=== PATIENT | female | born 1995 | race Caucasian/White ===

== ENCOUNTER 2021-04-18 11:50 | Emergency (ER) | payer OTHER, MEDICAID, SELFPAY ==
[2021-04-18 11:56] VITALS: BP 172/111; PULSE 121; RESP 24; TEMP 36.8; O2SAT 96
--- NOTE | 2021-04-18 12:03 | ED_ITS ---
HPI - Skin/Abscess/Foreign Bdy <TRINY Hogan - Last Filed: 04/18/21 18:41> General Chief complaint: Skin/Abscess/Foreign Body Stated complaint: Boils on skin-painful Time Seen by Provider: 04/18/21 11:56 Source: patient Mode of arrival: Ambulatory Limitations: no limitations History of Present Illness HPI narrative: 26-year-old female with history of methamphetamine use prior to 1 month ago, currently smoking fentanyl, presents today for multiple, painful skin eruptions on her whole body. She states that she used to use heroin, and she got sober for 2 years in a 12 step program and relapsed 2 years ago to methamphetamine. She states that her pain has been so bad with these skin eruptions that she started smoking fentanyl to help with her pain. She denies having a primary care provider at this time, she states that she needs help with pain management, and she is here today for help with her multiple skin eruptions. She states that she has been using warm compresses which helps bring them to the surface, and she states that she sometimes pops them when she can see pus, she states other times she does pick at them but tries not to. She denies having any recent fever, she does endorse having history of MRSA, as well as being admitted to the hospital with sepsis for this in the past. She denies any nausea vomiting, chest pain, difficulty breathing, joint pain, back pain, or other. Related Data Previous Rx's Medication Instructions Recorded amoxicillin 875 mg-potassium 1 tab PO BID 10 Days #20 tab 04/18/21 clavulanate 125 mg tablet (Augmentin) sulfamethoxazole 800 1 tab PO BID 7 Days #14 tab 04/18/21 mg-trimethoprim 160 mg tablet (Bactrim DS) tramadol 50 mg tablet 50 mg PO Q8H PRN #20 tab 04/18/21 Allergies Allergy/AdvReac Type Severity Reaction Status Date / Time No Known Drug Allergies Allergy Verified 04/18/21 12:01 Review of Systems <TRINY Hogan - Last Filed: 04/18/21 18:41> Review of Systems Narrative: General: denies fever, chills Head/Neck: denies headache, neck pain Eyes: denies visual changes, eye pain Cardio: denies chest pain, palpitations Respiratory: denies shortness of breath, cough GI: denies abdominal pain, nausea, vomiting, or diarrhea : denies dysuria, hematuria MSK: denies joint pain, muscle weakness Skin: denies rash, reports whole body covered in red, raised, painful skin eruptions. She states that they are all smaller than a pencil eraser, and mostly excoriated, but some have not come to the surface yet. Neuro: denies numbness, tingling Patient History <TRINY Hogan - Last Filed: 04/18/21 18:41> Medical History Methamphetamine abuse Opiate abuse, continuous Social History Smoking Status: Current every day smoker Smoking Status: Current every day smoker tobacco type: vaping alcohol intake frequency: 0-2 drinks per day Substance Use Type: opiates, IV drugs and methamphetamine Exam <TRINY Hogan - Last Filed: 04/18/21 18:41> Narrative Exam Narrative: Independently reviewed vitals signs and nursing notes. General: Awake, alert, nontoxic, no cardiorespiratory distress Head/Neck: Atraumatic, neck full range of motion Eyes: EOMI, conjunctiva normal Nose: nares patent, + rhinorrhea Mouth/Throat: moist mucus membranes, posterior pharynx normal, no oral lesions Cardio: Sinus Tachycardia and regular rhythm, 1+ pedal edema bilaterally, nonpitting, skin is warm, afebrile Respiratory: respirations unlabored without wheezing, stridor, or rales. No retractions. Occasional, slightly productive cough GI: Abdomen soft, nontender MSK: Moves all extremities, neurovascularly intact Skin: Normal capillary refill, no rash, at least 30-40 small 1 cm in diameter round erythematous papules, mostly excoriated, to of them are small abscesses, left axilla with 1 cm x 1 cm erythematousl abscess without lymphadenopathy, very superficial other small abscess is already open and draining to dorsum of left 2nd digit on top of PIP joint. Neuro: Normal speech and cognition, normal gait, no focal deficits, cranial nerves 2-10 tested without any deficits Initial Vital Signs Initial Vital Signs: Vital Signs Temperature 98.3 F 04/18/21 11:56 Pulse Rate 121 H 04/18/21 11:56 Respiratory Rate 24 04/18/21 11:56 Blood Pressure 172/111 H 04/18/21 11:56 Pulse Oximetry 96 04/18/21 11:56 <Felix Hua DO - Last Filed: 04/19/21 07:13> Initial Vital Signs Initial Vital Signs: Vital Signs Temperature 98.3 F 04/18/21 11:56 Pulse Rate 121 H 04/18/21 11:56 Respiratory Rate 24 04/18/21 11:56 Blood Pressure 172/111 H 04/18/21 11:56 Pulse Oximetry 96 04/18/21 11:56 Course <TRINY Hogan - Last Filed: 04/18/21 18:41> Orders Ordered: Discontinued Medications Acetaminophen (Acetaminophen 325 Mg Tablet) 975 mg PO NOW ONE Stop: 04/18/21 12:28 Last Admin: 04/18/21 13:27 Dose: 975 mg Documented by: MACARIO Amoxicillin/Clavulanate Potassium (Amoxicillin/Clav 875/125 Mg) 1 tab PO NOW ONE Stop: 04/18/21 13:07 Last Admin: 04/18/21 13:46 Dose: 1 tab Documented by: MACARIO Hydroxyzine Pamoate (Hydroxyzine Pamoate 25 Mg Capsule) 25 mg PO NOW ONE Stop: 04/18/21 12:28 Last Admin: 04/18/21 13:27 Dose: 25 mg Documented by: MACARIO Sodium Chloride (Normal Saline 0.9%) 1,000 mls @ 500 mls/hr IV CONT DEVONTE Last Infusion: 04/18/21 13:54 Dose: 0 mls/hr Documented by: Admin: 04/18/21 13:33 Dose: 500 mls/hr Documented by: ATAYLRAVI Ketorolac Tromethamine (Ketorolac 30 Mg/Ml Vial) 30 mg IV NOW ONE Stop: 04/18/21 12:28 Last Admin: 04/18/21 13:28 Dose: 30 mg Documented by: MACARIO Lorazepam (Lorazepam 2 Mg/Ml Inj) 0.5 mg IV NOW ONE Stop: 04/18/21 13:20 Last Admin: 04/18/21 13:29 Dose: 0.5 mg Documented by: MACARIO Tetanus/Diphtheria Toxoids (Tetanus Diphtheria Toxoids 0.5 Ml Vial) 0.5 ml IM .ONCE ONE Stop: 04/18/21 13:24 Last Admin: 04/18/21 13:47 Dose: Not Given Documented by: MACARIO Trimethoprim/Sulfamethoxazole (Trimeth/Sulfa 160/800 (Ds) Tablet) 1 tab PO NOW ONE Stop: 04/18/21 13:07 Last Admin: 04/18/21 13:46 Dose: 1 tab Documented by: MACARIO Vital Signs Vital signs: Vital Signs - 8 hr 04/18/21 11:56 04/18/21 13:30 Temperature 98.3 F Pulse Rate 121 H 118 H Respiratory Rate 24 24 Blood Pressure 172/111 H 122/93 H Pulse Oximetry 96 99 <Felix Hua DO - Last Filed: 04/19/21 07:13> Orders Ordered: Discontinued Medications Acetaminophen (Acetaminophen 325 Mg Tablet) 975 mg PO NOW ONE Stop: 04/18/21 12:28 Last Admin: 04/18/21 13:27 Dose: 975 mg Documented by: MACARIO Amoxicillin/Clavulanate Potassium (Amoxicillin/Clav 875/125 Mg) 1 tab PO NOW ONE Stop: 04/18/21 13:07 Last Admin: 04/18/21 13:46 Dose: 1 tab Documented by: MACARIO Hydroxyzine Pamoate (Hydroxyzine Pamoate 25 Mg Capsule) 25 mg PO NOW ONE Stop: 04/18/21 12:28 Last Admin: 04/18/21 13:27 Dose: 25 mg Documented by: MACARIO Sodium Chloride (Normal Saline 0.9%) 1,000 mls @ 500 mls/hr IV CONT DEVONTE Last Infusion: 04/18/21 13:54 Dose: 0 mls/hr Documented by: Admin: 04/18/21 13:33 Dose: 500 mls/hr Documented by: MACARIO Ketorolac Tromethamine (Ketorolac 30 Mg/Ml Vial) 30 mg IV NOW ONE Stop: 04/18/21 12:28 Last Admin: 04/18/21 13:28 Dose: 30 mg Documented by: MACARIO Lorazepam (Lorazepam 2 Mg/Ml Inj) 0.5 mg IV NOW ONE Stop: 04/18/21 13:20 Last Admin: 04/18/21 13:29 Dose: 0.5 mg Documented by: MACARIO Tetanus/Diphtheria Toxoids (Tetanus Diphtheria Toxoids 0.5 Ml Vial) 0.5 ml IM .ONCE ONE Stop: 04/18/21 13:24 Last Admin: 04/18/21 13:47 Dose: Not Given Documented by: MACARIO Trimethoprim/Sulfamethoxazole (Trimeth/Sulfa 160/800 (Ds) Tablet) 1 tab PO NOW ONE Stop: 04/18/21 13:07 Last Admin: 04/18/21 13:46 Dose: 1 tab Documented by: MACARIO Vital Signs Vital signs: Vital Signs - 8 hr 04/18/21 11:56 04/18/21 13:30 Temperature 98.3 F Pulse Rate 121 H 118 H Respiratory Rate 24 24 Blood Pressure 172/111 H 122/93 H Pulse Oximetry 96 99 MDM - Skin/Abscess/Foreign Bdy <SHANE HoganP - Last Filed: 04/18/21 18:41> Lab Data Result diagrams: 04/18/21 13:20 04/18/21 13:20 Labs: Lab Results 04/18/21 04/18/21 04/18/21 Range/Units 12:02 13:20 13:20 WBC 11.1 H (4.5-11.0) X10^3/uL RBC 3.95 L (4.0-5.2) X10^6/uL Hgb 11.9 L (12.0-16.0) g/dL Hct 35.7 L (36-46) % MCV 90.5 (80-100) fL MCH 30.1 (26-34) PG MCHC 33.2 (30-36) % RDW 13.1 (11.6-14.8) % Plt Count 258 (150-400) X10^3/uL Neut % (Auto) 62.0 (50-75) % Lymph % (Auto) 26.4 (25-40) % Benzie % (Auto) 8.6 (3-14) % Eos % (Auto) 2.5 (2-4) % Baso % (Auto) 0.5 (0-2) % Neut # (Auto) 6900 (3220-2284) /uL Lymph # (Auto) 2900 (5152-4674) /uL Benzie # (Auto) 1000 H (0-900) /uL Eos # (Auto) 300 (0-450) /uL Baso # (Auto) 100 (0-100) /uL Sodium 137 (137-145) mmol/L Potassium 3.8 (3.4-5.1) mmol/L Chloride 106 (98-107) mmol/L Carbon Dioxide 27 (22-32) mmol/L BUN 7 (7-17) mg/dL Creatinine 0.55 (0.52-1.04) mg/dL Estimated GFR > 60.0 (>60) mL/min BUN/Creatinine Ratio 12.7 (6-22) Glucose 130 H (70-100) mg/dL Lactate (0.7-2.1) mmol/L Calcium 9.0 (8.4-10.2) mg/dL Total Bilirubin 0.9 (0.2-1.3) mg/dL AST 41 H (14-36) IU/L ALT 34 (<35) IU/L Alkaline Phosphatase 79 (38-126) U/L Total Protein 6.8 (6.3-8.2) g/dL Albumin 3.8 (3.5-5.0) g/dL Globulin 3.0 (1.7-4.1) g/dL Albumin/Globulin Ratio 1.3 (1.0-2.8) Procalcitonin 0.08 (<0.5) ng/mL HCG, Quant mIU/mL SARS-CoV-2 (PCR) Negative (Negative) 04/18/21 04/18/21 Range/Units 13:20 13:20 WBC (4.5-11.0) X10^3/uL RBC (4.0-5.2) X10^6/uL Hgb (12.0-16.0) g/dL Hct (36-46) % MCV (80-100) fL MCH (26-34) PG MCHC (30-36) % RDW (11.6-14.8) % Plt Count (150-400) X10^3/uL Neut % (Auto) (50-75) % Lymph % (Auto) (25-40) % Benzie % (Auto) (3-14) % Eos % (Auto) (2-4) % Baso % (Auto) (0-2) % Neut # (Auto) (6962-7499) /uL Lymph # (Auto) (4134-3635) /uL Benzie # (Auto) (0-900) /uL Eos # (Auto) (0-450) /uL Baso # (Auto) (0-100) /uL Sodium (137-145) mmol/L Potassium (3.4-5.1) mmol/L Chloride (98-107) mmol/L Carbon Dioxide (22-32) mmol/L BUN (7-17) mg/dL Creatinine (0.52-1.04) mg/dL Estimated GFR (>60) mL/min BUN/Creatinine Ratio (6-22) Glucose (70-100) mg/dL Lactate 1.0 (0.7-2.1) mmol/L Calcium (8.4-10.2) mg/dL Total Bilirubin (0.2-1.3) mg/dL AST (14-36) IU/L ALT (<35) IU/L Alkaline Phosphatase (38-126) U/L Total Protein (6.3-8.2) g/dL Albumin (3.5-5.0) g/dL Globulin (1.7-4.1) g/dL Albumin/Globulin Ratio (1.0-2.8) Procalcitonin (<0.5) ng/mL HCG, Quant < 2.4 mIU/mL SARS-CoV-2 (PCR) (Negative) Imaging Data Chest x-ray: Radiologist's Impression: PROCEDURE:? XR CHEST 1V ? INDICATIONS:? Cough, tachycardia ? TECHNIQUE:? One view of the chest was acquired.? ? COMPARISON:? [facility], , CHEST 2VW, 02/16/2009, 1:44. ? FINDINGS:? ? Surgical changes and devices:? None.? ? Lungs and pleura:? Lungs are clear.? No pleural effusions or pneumothorax.? ? Mediastinum:? Mediastinal contours appear normal.? Heart size is normal.? ? Bones and chest wall:? No suspicious bony lesions.? Overlying soft tissues appear unremarkable.? IMPRESSION:? ? Normal chest.? Clear lungs. ? ? Dictated by: Paco Schulte M.D. on 04/18/2021 at 11:41 ? ? Approved by: Paco Schulte M.D. on 04/18/2021 at 11:43 ? MDM Narrative Medical decision making narrative: 26-year-old female with history of substance abuse presents today for multiple, painful, skin eruptions covering her whole body. She states that these skin eruptions have been present for months, she h as been afebrile, but presented today with tachycardia and increased respirations, could be related to drug use, but her skin is a infectious source, she met sepsis criteria for further evaluation. Labs were pertinent for WBC of 11.1, COVID PCR was negative, patient is nontoxic appearing, afebrile, without signs of systemic infection. Blood cultures were drawn, this is most likely cellulitis with purulent abscesses and excoriation. There was no drainable abscesses on exam, patient was instructed to use warm compresses until they abrupt, or to return to the emergency department if any are getting large and not draining. Because she has a history of MRSA she was prescribed Bactrim and Augmentin with concern for endocarditis risks and drug use. Her heart rate improved on re-examination after some IV fluids, her tachycardia was most likely related to anxiety as patient was extremely anxious during her visit. Patient is appropriate and amenable to discharge home. Vital signs are stable on repeat examination is unremarkable. Patient has been informed of results. Patient has been given strict return to ER precautions for any new or worsening symptoms. Patient understands to follow up closely with outpatient providers as instructed. Patient understands plan and agrees to discharge home. All questions and concerns answered at this time. <Felix Hua, DO - Last Filed: 04/19/21 07:13> Lab Data Labs: Lab Results 04/18/21 04/18/21 04/18/21 Range/Units 12:02 13:20 13:20 WBC 11.1 H (4.5-11.0) X10^3/uL RBC 3.95 L (4.0-5.2) X10^6/uL Hgb 11.9 L (12.0-16.0) g/dL Hct 35.7 L (36-46) % MCV 90.5 (80-100) fL MCH 30.1 (26-34) PG MCHC 33.2 (30-36) % RDW 13.1 (11.6-14.8) % Plt Count 258 (150-400) X10^3/uL Neut % (Auto) 62.0 (50-75) % Lymph % (Auto) 26.4 (25-40) % Benzie % (Auto) 8.6 (3-14) % Eos % (Auto) 2.5 (2-4) % Baso % (Auto) 0.5 (0-2) % Neut # (Auto) 6900 (9637-9984) /uL Lymph # (Auto) 2900 (1466-2698) /uL Benzie # (Auto) 1000 H (0-900) /uL Eos # (Auto) 300 (0-450) /uL Baso # (Auto) 100 (0-100) /uL Sodium 137 (137-145) mmol/L Potassium 3.8 (3.4-5.1) mmol/L Chloride 106 (98-107) mmol/L Carbon Dioxide 27 (22-32) mmol/L BUN 7 (7-17) mg/dL Creatinine 0.55 (0.52-1.04) mg/dL Estimated GFR > 60.0 (>60) mL/min BUN/Creatinine Ratio 12.7 (6-22) Glucose 130 H (70-100) mg/dL Lactate (0.7-2.1) mmol/L Calcium 9.0 (8.4-10.2) mg/dL Total Bilirubin 0.9 (0.2-1.3) mg/dL AST 41 H (14-36) IU/L ALT 34 (<35) IU/L Alkaline Phosphatase 79 (38-126) U/L Total Protein 6.8 (6.3-8.2) g/dL Albumin 3.8 (3.5-5.0) g/dL Globulin 3.0 (1.7-4.1) g/dL Albumin/Globulin Ratio 1.3 (1.0-2.8) Procalcitonin 0.08 (<0.5) ng/mL HCG, Quant mIU/mL SARS-CoV-2 (PCR) Negative (Negative) 04/18/21 04/18/21 Range/Units 13:20 13:20 WBC (4.5-11.0) X10^3/uL RBC (4.0-5.2) X10^6/uL Hgb (12.0-16.0) g/dL Hct (36-46) % MCV (80-100) fL MCH (26-34) PG MCHC (30-36) % RDW (11.6-14.8) % Plt Count (150-400) X10^3/uL Neut % (Auto) (50-75) % Lymph % (Auto) (25-40) % Benzie % (Auto) (3-14) % Eos % (Auto) (2-4) % Baso % (Auto) (0-2) % Neut # (Auto) (2004-4942) /uL Lymph # (Auto) (6406-4847) /uL Benzie # (Auto) (0-900) /uL Eos # (Auto) (0-450) /uL Baso # (Auto) (0-100) /uL Sodium (137-145) mmol/L Potassium (3.4-5.1) mmol/L Chloride (98-107) mmol/L Carbon Dioxide (22-32) mmol/L BUN (7-17) mg/dL Creatinine (0.52-1.04) mg/dL Estimated GFR (>60) mL/min BUN/Creatinine Ratio (6-22) Glucose (70-100) mg/dL Lactate 1.0 (0.7-2.1) mmol/L Calcium (8.4-10.2) mg/dL Total Bilirubin (0.2-1.3) mg/dL AST (14-36) IU/L ALT (<35) IU/L Alkaline Phosphatase (38-126) U/L Total Protein (6.3-8.2) g/dL Albumin (3.5-5.0) g/dL Globulin (1.7-4.1) g/dL Albumin/Globulin Ratio (1.0-2.8) Procalcitonin (<0.5) ng/mL HCG, Quant < 2.4 mIU/mL SARS-CoV-2 (PCR) (Negative) Discharge Plan Departure Patient Disposition: Home Clinical Impression: Cellulitis and abscess of other specified site Instructions: Substance Use Disorder, DI for Skin Abscess Activity Restrictions/Additional Instructions: *You have been diagnosed with multiple abscesses and cellulitis from drug use. Please try to quit doing fentanyl or methamphetamine. These are very dangerous and huge risks to your life. I called your to antibiotics in to [facility] here in town, please pick those up and take them as directed, there is also pain medication for you. Use warm compresses multiple times a day for all swollen abscesses that have not popped yet. Please try to obtain a primary care provider, that would be helpful for you as you move forward with pain management. Is something important comes back in your labs after he leaves today we will call you with that information. Please try to stay hydrated, eat healthy foods, remember that the drugs are toxic to your skin. Try to use a thick ointment like antibiotic ointment or a stick lotion to keep these areas of excoriation moisturize. It may help reduce scarring. *What to do: *Please continue to take your regular medications as directed. [ x] New medication prescriptions sent to your pharmacy: [[facility]] [ ] New medication written as a paper prescription [ ] No new medications given *Please follow up with your primary care provider in 2-3 days, call for an appointment. Let them know you were seen in the Emergency Department and that we ask that you be seen in follow up. We will electronically transmit a record of today's note if your PCP is in our system *If you do not have a primary care provider please contact the [facility] Resource line at [phone]. They will ask some questions about your medical history and help get you set up with a doctor in the community. *Return to Emergency Department if you should have any new, worsening or concerning symptoms, such as [fever greater than 101F, chills, worsening pain, persistent vomiting or other bothersome symptoms] Prescriptions: New sulfamethoxazole-trimethoprim [Bactrim DS] 800-160 mg tablet 1 tab PO BID 7 Days Qty: 14 RF: 0 amoxicillin-pot clavulanate [Augmentin] 875-125 mg tablet 1 tab PO BID 10 Days Qty: 20 RF: 0 tramadol 50 mg tablet 50 mg PO Q8H PRN (Reason: pain) Qty: 20 RF: 0 Referrals: [facility] [Provider Group] (Call Monday to make an appointment, state that you are referred from the emergency department at [facility]. They might be to 3 months backed up but you will still have an appointment coming.) <Felix Hua, DO - Last Filed: 04/19/21 07:13> Cosign ED Attending Cosignature Attestation: Dr Hua Co-Sign Statement: I was available for consultation during this patient's emergency department visit. This chart is signed by myself for administrative purposes only. I did not have direct contact with this patient during this visit. They were seen independently by the APC.
[2021-04-18 12:25] LABS: COVID19 -Nasal RAPID Negative (Negative)
--- NOTE | 2021-04-18 12:27 | DI.RAD.S_ITS ---
PROCEDURE: XR CHEST 1V INDICATIONS: Cough, tachycardia TECHNIQUE: One view of the chest was acquired. COMPARISON: Merged With [facility], , CHEST 2VW, 02/16/2009, 1:44. FINDINGS: Surgical changes and devices: None. Lungs and pleura: Lungs are clear. No pleural effusions or pneumothorax. Mediastinum: Mediastinal contours appear normal. Heart size is normal. Bones and chest wall: No suspicious bony lesions. Overlying soft tissues appear unremarkable. IMPRESSION: Normal chest. Clear lungs. Dictated by: Paco Schulte M.D. on 04/18/2021 at 11:41 Approved by: Paco Schulte M.D. on 04/18/2021 at 11:43
[2021-04-18] MEDS: ACETAMINOPHEN 325 MG TABLET 975 MG PO (13:27)
[2021-04-18] MEDS: hydrOXYzine pamoate 25 MG CAPSULE PO (13:27)
[2021-04-18] MEDS: KETOROLAC 30 MG/ML VIAL IV (13:28)
[2021-04-18] MEDS: LORazepam 2 MG/ML INJ 0.5 MG IV (13:29)
[2021-04-18 13:30] VITALS: BP 122/93; PULSE 118; RESP 24; O2SAT 99
[2021-04-18 13:30] LABS: Add Manual Diff / Slide Review NO; Basophils Absolute Auto 100 /uL (0-100); Basophils Percent Auto 0.5 % (0-2); Eosinophils Absolute Auto 300 /uL (0-450); Eosinophils Percent Auto 2.5 % (2-4); Hematocrit 35.7 % (36-46); Hemoglobin 11.9 g/dL (12.0-16.0); Lymphocytes Absolute Auto 2900 /uL (1100-4500); Lymphocytes Percent Auto 26.4 % (25-40); Mean Corpuscular HGB Conc 33.2 % (30-36); Mean Corpuscular Hemoglobin 30.1 PG (26-34); Mean Corpuscular Volume 90.5 fL (80-100); Monocytes Absolute Auto 1000 /uL (0-900); Monocytes Percent Auto 8.6 % (3-14); Neutrophils Absolute Auto 6900 /uL (1500-7000); Platelet Count 258 X10^3/uL (150-400); Red Blood Cell Count 3.95 X10^6/uL (4.0-5.2); Red Cell Distribution Width 13.1 % (11.6-14.8); White Blood Cell Count 11.1 X10^3/uL (4.5-11.0)
[2021-04-18] MEDS: SODIUM CHLORIDE 0.9% 1,000 ML 500 ML IV (13:33)
[2021-04-18 13:41] LABS: Alanine Aminotransferase 34 IU/L (<35); Albumin 3.8 g/dL (3.5-5.0); Albumin Globulin Ratio 1.3 (1.0-2.8); Alkaline Phosphatase 79 U/L (38-126); Aspartate Aminotransferase 41 IU/L (14-36); BUN Creatinine Ratio 12.7 (6-22); Bilirubin Total 0.9 mg/dL (0.2-1.3); Blood Urea Nitrogen 7 mg/dL (7-17); Carbon Dioxide 27 mmol/L (22-32); Chloride 106 mmol/L (98-107); Estimated Glomerular Filt Rate > 60.0 mL/min (>60); Glucose 130 mg/dL (70-100); HEMOLYSIS 18 (0-50); Potassium 3.8 mmol/L (3.4-5.1); Sodium 137 mmol/L (137-145); Total Protein 6.8 g/dL (6.3-8.2)
[2021-04-18] MEDS: TRIMETH/SULFA 160/800 (DS) TABLET 1 TAB PO (13:46)
[2021-04-18] MEDS: AMOXICILLIN/CLAV 875/125 MG 1 TAB PO (13:46)
--- NOTE | 2021-04-18 13:54 | PC.NURSE ---
certified surgical technician attempted 2nd blood culture draw x2 unsuccessfully, pt refused further attempts, Crew PA notified. Pt requested IV be removed and fluids stopped, states she will hydrate PO.
[2021-04-18 13:58] LABS: HCG Quantitative /Beta subunit < 2.4 mIU/mL; Procalcitonin 0.08 ng/mL (<0.5)
--- NOTE | 2021-04-19 20:31 | PC.NURSE ---
Pt phoned the nurses' station to report that she was seen here and her prescriptions were sent to [facility], but she was unable to fill them because they don't take her insurance. She said that when she tried to have them transferred to [facility], they were unable to do so because one of them is controlled. She asked if we could reissue the Tramadol. Request discussed with Dr Plaza, he wrote her a new prescription for Tramadol, pt notified that she will need to come pick it up. She agreed.
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
== END 2021-04-18 14:02 | disposition home or self-care (01) ==
PROVIDERS: Emergency Medicine; Emergency Provider Nurse Practitioner Critical Care Medicine
DX: L03.818 Cellulitis of other sites (principal); L02.818 Cutaneous abscess of other sites; R00.0 Tachycardia, unspecified; R05.9 Cough, unspecified; Z20.822 Contact with and (suspected) exposure to COVID-19
CPT/HCPCS: 36415; 71045; 80053; 83605; 84145; 84702; 85025; 87040; 87635; 96374; 96375; 99284; C9803; J1885; J2060

== ENCOUNTER 2022-12-29 02:54 | Emergency (ER) | payer BC, OTHER, SELFPAY ==
[2022-12-29] VITALS (14 sets, daily range): BP systolic 126–140; BP diastolic 59–97; PULSE 64–121; RESP 12–24; TEMP 36.9; O2SAT 94–100
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
--- NOTE | 2022-12-29 04:41 | PC.NURSE ---
Patient refusing blood draw and ordered NS fluids. Dr. Melita billings.
[2022-12-29 05:28] LABS: Add Manual Diff / Slide Review NO; Basophils Absolute Auto 0 /uL (0-100); Basophils Percent Auto 0.3 % (0-2); Eosinophils Absolute Auto 100 /uL (0-450); Eosinophils Percent Auto 0.9 % (2-4); Hemoglobin 12.1 g/dL (12.0-16.0); Lymphocytes Absolute Auto 1900 /uL (1100-4500); Mean Corpuscular HGB Conc 33.7 % (30-36); Mean Corpuscular Hemoglobin 29.4 PG (26-34); Mean Corpuscular Volume 87.4 fL (80-100); Monocytes Absolute Auto 600 /uL (0-900); Monocytes Percent Auto 5.9 % (3-14); Neutrophils Absolute Auto 7800 /uL (1500-7000); Neutrophils Percent Auto 74.9 % (50-75); Platelet Count 246 X10^3/uL (150-400); Red Blood Cell Count 4.12 X10^6/uL (4.0-5.2); Red Cell Distribution Width 13.7 % (11.6-14.8); White Blood Cell Count 10.4 X10^3/uL (4.5-11.0)
[2022-12-29 05:42] LABS: Ethanol (ETOH) < 10 mg/dL; Lipase 21 U/L (23-300)
[2022-12-29 05:43] LABS: Alanine Aminotransferase 19 IU/L (<35); Albumin 3.7 g/dL (3.5-5.0); Albumin Globulin Ratio 1.2 (1.0-2.8); Alkaline Phosphatase 104 U/L (38-126); Aspartate Aminotransferase 23 IU/L (14-36); BUN Creatinine Ratio 10.2 (6-22); Bilirubin Total 0.6 mg/dL (0.2-1.3); Blood Urea Nitrogen 6 mg/dL (7-17); Calcium 8.6 mg/dL (8.4-10.2); Carbon Dioxide 28 mmol/L (22-32); Chloride 103 mmol/L (98-107); Estimated Glomerular Filt Rate > 60 mL/min (>60); Glucose 100 mg/dL (70-100); HEMOLYSIS < 15 (0-50); Potassium 3.9 mmol/L (3.4-5.1); Sodium 136 mmol/L (137-145); Total Protein 6.7 g/dL (6.3-8.2)
[2022-12-29 05:51] LABS: Pregnancy Test Serum,Qual Negative (Negative)
== END 2022-12-29 06:00 | disposition home or self-care (01) ==
PROVIDERS: Emergency Provider Emergency Medicine
DX: S39.91XA Unspecified injury of abdomen, initial encounter (principal); M54.2 Cervicalgia; S09.90XA Unspecified injury of head, initial encounter; R51.9 Headache, unspecified; V89.2XXA Person injured in unspecified motor-vehicle accident, traffic, initial encounter
CPT/HCPCS: 36415; 70450; 71045; 72125; 74177; 80053; 80320; 83690; 84703; 85025; 99284; Q9967